=== PATIENT | female | born 1985 | race African-American/Black ===

== ENCOUNTER 2017-01-07 12:58 | Emergency (ER) | payer MEDICAID ==
[~2017-01-07 12:58] MED LIST: ATIVAN1 M1 PO; AUGMENTIN875 MG PO; CIPRO500 M2 PO; COLACE100 M1 PO; IBUPROFEN800 M1 PO; IRON325 M3 PO; LABETALOL HCL200 M1 PO; LASIX20 M1 PO; LORTAB ELIXIR480 ML PO; MULTIVITAM1 TAB.CHEW PO; MULTIVITAMINS1 EAC6 PO; POTASSIUM CHLO20 ME3 PO; PRENATAL MULTI1 EAC2 PO; PROCARDIA XL30 M1 PO; TRANSDERM-1 PATCH .7 TD; VITAMIN D350000 UNIT PO; VITAMIN D5000 UNI1 PO; ZOFRAN ODT4 MG/UDTAB SL
== END 2017-01-07 14:15 ==
LOC: EDMED 12:58
DX: S39.012A Strain of muscle, fascia and tendon of lower back, initial encounter (principal); S80.211A Abrasion, right knee, initial encounter; I10 Essential (primary) hypertension; Z79.899 Other long term (current) drug therapy; W18.09XA Striking against other object with subsequent fall, initial encounter; Y92.019 Unspecified place in single-family (private) house as the place of occurrence of the external cause
CPT/HCPCS: J1885